=== PATIENT | male | born 1990 | race Asian ===

== ENCOUNTER 2018-08-17 01:19 | Inpatient (IN) | payer OTHER ==
[~2018-08-17] VITALS: Ht 172.7 cm; Wt 96.0 kg
[2018-08-17] MEDS ORDERED: LISI-662 PO (01:39)
[2018-08-17] MEDS ORDERED: ATOR10TA84 PO (01:39)
[2018-08-17] MEDS ORDERED: METF-960 PO (01:39)
[2018-08-17 03:03] LABS: BASOPHILS % (AUTO) 0.6 % (0.0-2.0); HEMOGLOBIN 15.4 g/dL (13.5-17.5); LYMPHOCYTES % (AUTO) 34.5 % (22.0-44.0); MEAN CORPUSCULAR HEMOGLOBIN 28.1 pg (26.0-34.0); MEAN CORPUSCULAR HGB CONC 34.2 G/dL (31.0-37.0); MEAN CORPUSCULAR VOLUME 82 fL (80-100); MONOCYTES # (AUTO) 0.6 K/uL (0.1-1.0); MONOCYTES % (AUTO) 6.3 % (2.0-9.0); NEUTROPHILS % (AUTO) 56.6 % (40.0-70.0); RED BLOOD CELL COUNT(AUTO) 5.48 MIL/uL (4.50-5.90)
[2018-08-17 03:04] LABS: ANION GAP 8 mmol/L (8-16); CALCIUM, TOTAL 9.5 mg/dL (8.8-10.5); CARBON DIOXIDE 27 mmol/L (22-29); CHLORIDE 106 mmol/L (98-107); CREATININE 1.16 mg/dL (0.60-1.30); GLOMERULAR FILTR. RATE CALC > 60 mL/min (>60); GLUCOSE,RANDOM 143 mg/dL (70-110); POTASSIUM 3.7 mmol/L (3.5-5.1); SODIUM SERUM 141 mmol/L (136-145); UREA NITROGEN, BLOOD 20 mg/dL (7-18)
[2018-08-17 03:08] LABS: AMPHET/METH SCREEN,URINE NEGATIVE (NEGATIVE); BARBITURATE SCREEN, URINE NEGATIVE (NEGATIVE); BENZODIAZEPINES SCREEN,URINE NEGATIVE (NEGATIVE); CANNABINOID SCREEN,URINE NEGATIVE (NEGATIVE); COCAINE SCREEN,URINE NEGATIVE (NEGATIVE); METHADONE SCREEN, URINE NEGATIVE (NEGATIVE); OPIATE SCREEN,URINE NEGATIVE (NEGATIVE)
[2018-08-17 03:09] LABS: PHENCYCLIDINE SCREEN,URINE NEGATIVE (NEGATIVE)
[2018-08-17 03:10] LABS: ALANINE AMINOTRANSFERASE 108 U/L (12-78); ALBUMIN 4.7 g/dL (3.4-5.0); ALKALINE PHOSPHATASE 86 U/L (46-116); ASPARTATE AMINOTRANSFERASE 34 U/L (15-37); BILIRUBIN,TOTAL 0.9 mg/dL (0.1-1.0); TOTAL PROTEIN, SERUM 8.2 g/dL (6.4-8.2)
[2018-08-17 03:16] LABS: PLATELET COUNT (AUTO) 232 K/uL (150-450); PLATELET MORPHOLOGY COMMENT GIANT PLTS PRESENT
[2018-08-17 06:00] LABS: GLUCOSE,POINT OF CARE 147 MG/DL (70-110)
[2018-08-17] MEDS ORDERED: HALOPERIDOL 5 MG TABLET PO PRN (07:15)
[2018-08-17] MEDS ORDERED: ZOLPIDEM TARTRATE 10 MG TABLET PO PRN (07:15)
[2018-08-17] MEDS ORDERED: LORazepam 2 MG TABLET PO PRN (07:15)
[2018-08-17] MEDS: ESCITALOPRAM OXALATE 10 MG TABLET PO SCH (13:38)
[2018-08-17 15:24] LABS: GLUCOSE,POINT OF CARE 145 MG/DL (70-110)
[2018-08-17 16:41] VITALS: BP 146/74
[2018-08-17] MEDS ORDERED: DEXTROSE 50%-WATER 25 GM/50 ML SYRINGE IVP PRN (18:00)
[2018-08-17] MEDS: ATORVASTATIN CALCIUM 10 MG TABLET PO SCH (20:49)
[2018-08-17 20:50] LABS: GLUCOMETER DEV NAME(LOC) 3E.I; GLUCOSE,POINT OF CARE 160 MG/DL (70-110)
[2018-08-17] MEDS: INSULIN LISPRO 100 UNITS/ML SQ PRN (21:36)
[2018-08-18 05:25] LABS: GLUCOMETER DEV NAME(LOC) 3E.C; GLUCOSE,POINT OF CARE 128 MG/DL (70-110)
[2018-08-18 06:11] LABS: CHOL/HDL RATIO 3.2 (4.2-7.3)
[2018-08-18] MEDS: MetFORMIN HCL 500 MG TABLET PO SCH ×2 (06:18→17:13)
[2018-08-18] MEDS: ESCITALOPRAM OXALATE 10 MG TABLET PO SCH (11:12)
[2018-08-18] MEDS: LISINOPRIL 20 MG TABLET PO SCH (11:12)
[2018-08-18 12:00] LABS: GLUCOMETER DEV NAME(LOC) 3E.I; GLUCOSE,POINT OF CARE 156 MG/DL (70-110)
[2018-08-18] MEDS: INSULIN LISPRO 100 UNITS/ML SQ PRN (12:38)
[2018-08-18 15:27] VITALS: BP 154/97
[2018-08-18 16:30] VITALS: BP 129/72
[2018-08-18 17:24] LABS: GLUCOMETER DEV NAME(LOC) 3E.I; GLUCOSE,POINT OF CARE 135 MG/DL (70-110)
[2018-08-18] MEDS: ATORVASTATIN CALCIUM 10 MG TABLET PO SCH (20:51)
[2018-08-18 21:49] LABS: GLUCOMETER DEV NAME(LOC) 3E.I; GLUCOSE,POINT OF CARE 118 MG/DL (70-110)
[2018-08-19 05:35] LABS: GLUCOMETER DEV NAME(LOC) 3E.I; GLUCOSE,POINT OF CARE 117 MG/DL (70-110)
[2018-08-19] MEDS: INSULIN LISPRO 100 UNITS/ML SQ PRN ×4 (06:39→22:37)
[2018-08-19] MEDS: MetFORMIN HCL 500 MG TABLET PO SCH ×2 (06:40→17:20)
[2018-08-19 08:29] VITALS: BP 129/70
[2018-08-19] MEDS: ESCITALOPRAM OXALATE 10 MG TABLET PO SCH (08:49)
[2018-08-19] MEDS: LISINOPRIL 20 MG TABLET PO SCH (08:49)
[2018-08-19 11:25] LABS: GLUCOMETER DEV NAME(LOC) 3E.I; GLUCOSE,POINT OF CARE 153 MG/DL (70-110)
[2018-08-19 16:40] LABS: GLUCOMETER DEV NAME(LOC) 3E.I; GLUCOSE,POINT OF CARE 140 MG/DL (70-110)
[2018-08-19 16:50] VITALS: BP 130/77
[2018-08-19] MEDS: ATORVASTATIN CALCIUM 10 MG TABLET PO SCH (20:59)
[2018-08-19 21:34] LABS: GLUCOMETER DEV NAME(LOC) 3E.I; GLUCOSE,POINT OF CARE 130 MG/DL (70-110)
[2018-08-20 05:44] LABS: GLUCOMETER DEV NAME(LOC) 3E.I; GLUCOSE,POINT OF CARE 113 MG/DL (70-110)
[2018-08-20] MEDS: MetFORMIN HCL 500 MG TABLET PO SCH (06:49)
[2018-08-20] MEDS: INSULIN LISPRO 100 UNITS/ML SQ PRN ×2 (06:49→11:40)
[2018-08-20] MEDS: LISINOPRIL 20 MG TABLET PO SCH (09:07)
[2018-08-20] MEDS: ESCITALOPRAM OXALATE 10 MG TABLET PO SCH (09:08)
[2018-08-20] MEDS ORDERED: ESCI10TA54 PO (10:48)
[2018-08-20 11:40] LABS: GLUCOMETER DEV NAME(LOC) 3E.I; GLUCOSE,POINT OF CARE 139 MG/DL (70-110)
[2018-08-20 12:10] VITALS: BP 126/71
== END 2018-08-20 13:30 | disposition home or self-care (01) | DRG 885 ==
LOC: EMS 01:22 → 3EI 14:53
DX: F32.2 Major depressive disorder, single episode, severe without psychotic features (principal); R45.851 Suicidal ideations; E11.9 Type 2 diabetes mellitus without complications; I10 Essential (primary) hypertension; E78.5 Hyperlipidemia, unspecified; E78.00 Pure hypercholesterolemia, unspecified; Z79.899 Other long term (current) drug therapy; Z87.891 Personal history of nicotine dependence; R79.89 Other specified abnormal findings of blood chemistry
CPT/HCPCS: 80074; 83036; G0480